=== PATIENT | female | born 1995 | race Caucasian/White ===

== ENCOUNTER 2016-12-27 11:06 | Emergency (ER) | payer OTHER ==
[2016-12-27 12:15] LABS: Basophils % (Auto) 0.5 % (0.0-1.8); Eosinophils % (Auto) 1.6 % (0.0-4.3); Hematocrit 39.1 % (30.3-42.9); Mean Corpuscular HGB Conc 31 % (30-34); Red Blood Count 6.36 M/mm3 (3.65-5.03); White Blood Count 16.7 K/mm3 (4.5-11.0)
[2016-12-27 12:24] LABS: Mean Corpuscular Hemoglobin 19 pg (28-32); Mean Corpuscular Volume 62 fl (79-97)
[2016-12-27 12:28] LABS: Anion Gap 19 mmol/L; Blood Urea Nitrogen 9 mg/dL (7-17); Calcium 8.9 mg/dL (8.4-10.2); Carbon Dioxide 20 mmol/L (22-30); Chloride 102.2 mmol/L (98-107); Glucose 88 mg/dL (65-100); Sodium 137 mmol/L (137-145)
[2016-12-27 12:54] LABS: Platelet Count 223 K/mm3 (140-440)
[2016-12-27 13:17] LABS: Bilirubin,Urine NEG (Negative); Blood,Urine SM (Negative); Ketones,Urine NEG (Negative); Leukocyte Esterase,Urine NEG (Negative); Mucus,Urine 3+ /HPF; Nitrite,Urine NEG (Negative); Protein,Urine <15 mg/dL mg/dL (Negative); Urobilinogen,Urine < 2.0 mg/dL (<2.0)
[2016-12-27] MEDS ORDERED: NACL 0.9% 1000 ML 1,000 ML IV ONE (17:36)
--- NOTE | 2016-12-27 17:36 | Emergency Department Report ---
ED Dizziness HPI - General Chief Complaint: Dizziness Stated Complaint: DIZZINESS/FAINT/VOMITING/ Time Seen by Provider: 12/27/16 16:52 Source: patient, family Mode of arrival: Ambulatory Limitations: No Limitations - History of Present Illness MD Complaint: dizziness, lightheadedness Onset/Timin -: days(s) - Related Data Previous Rx's Medication Instructions Recorded Last Taken Type Doxycycline [Vibramycin CAP] 100 mg PO Q12HR #28 capsule 06/16/16 Unknown Rx HYDROcodone/APAP 5-325 [[place] 1 - 2 each PO Q6HR PRN #20 tablet 06/16/16 Unknown Rx 5/325] Ibuprofen [Motrin 800 MG tab] 800 mg PO Q8HR PRN #20 tablet 06/16/16 Unknown Rx Allergies Allergy/AdvReac Type Severity Reaction Status Date / Time No Known Allergies Allergy Verified 02/22/15 21:09 ED Review of Systems ROS: Stated complaint: DIZZINESS/FAINT/VOMITING/ Other details as noted in HPI ED Past Medical Hx - Past Medical History Previous Medical History?: No Hx Hypertension: No Hx Heart Attack/AMI: No Hx Congestive Heart Failure: No Hx Diabetes: No Hx Deep Vein Thrombosis: No Hx Renal Disease: No Hx Sickle Cell Disease: No Hx Seizures: No Hx Asthma: No Hx COPD: No Hx HIV: No - Social History Smoking Status: Current Every Day Smoker (1/3 pack per day) Substance Use Type: None (denies illicit drug use) - Medications Home Medications: Home Medications Medication Instructions Recorded Confirmed Last Taken Type Doxycycline [Vibramycin CAP] 100 mg PO Q12HR #28 capsule 06/16/16 Unknown Rx HYDROcodone/APAP 5-325 [[place] 1 - 2 each PO Q6HR PRN #20 tablet 06/16/16 Unknown Rx 5/325] Ibuprofen [Motrin 800 MG tab] 800 mg PO Q8HR PRN #20 tablet 06/16/16 Unknown Rx ED Physical Exam - General Limitations: No Limitations ED Course Vital Signs 12/27/16 11:42 Temperature 98.1 F Pulse Rate 77 Respiratory 18 Rate Blood Pressure 119/67 O2 Sat by Pulse 100 Oximetry ED Medical Decision Making - Lab Data Result diagrams: 12/27/16 12:08 12/27/16 12:08 Critical care attestation.: If time is entered above; I have spent that time in minutes in the direct care of this critically ill patient, excluding procedure time. ED Disposition Condition: Stable Referrals: PRIMARY CARE,MD [Primary Care Provider] - 3-5 Days
[2016-12-27] MEDS ORDERED: REGLAN IV ONE (17:37)
[2016-12-27 18:14] LABS: Hematocrit 38.5 % (30.3-42.9); Mean Corpuscular HGB Conc 31 % (30-34); Red Blood Count 6.25 M/mm3 (3.65-5.03); Red Cell Distribution Width 16.1 % (13.2-15.2); White Blood Count 17.1 K/mm3 (4.5-11.0)
[2016-12-27 18:29] LABS: Mean Corpuscular Hemoglobin 19 pg (28-32); Mean Corpuscular Volume 62 fl (79-97); Platelet Count 263 K/mm3 (140-440)
[2016-12-27 19:10] LABS: Basophils % (Manual) 0 % (0.0-1.8); Blastocytes % (Manual) 0 %
[2016-12-27 19:11] LABS: Elliptocytes Few; Hypochromasia 2+; Microcytosis 2+; Ovalocytes 1+
[2016-12-27 19:12] LABS: Diff Status Complete; Large Platelets 1+; Platelet Estimate Consistent w Auto; Target Cells Rare; Tear Drop Cells Few
--- NOTE | 2016-12-27 19:44 | Emergency Department Report ---
ED N/V/D HPI - General Chief complaint: Dizziness Stated complaint: DIZZINESS/FAINT/VOMITING/ Time Seen by Provider: 12/27/16 16:52 Source: patient, family Mode of arrival: Ambulatory Limitations: No Limitations - History of Present Illness Initial comments: Patient is a 21-year-old who presents to ED complaining of nausea and vomiting as 3 days. Patient states she has not been able to hold food or fluids down. Patient describes last menstrual period as 11/15/2016. Patient states she started to experience some dizziness today that lasted a couple minutes. Patient states she felt like the room spinning around her and denies tinnitus or loss of consciousness. Patient states she currently takes no medication and has no allergies. Patient denies fevers/chills/nausea/vomiting/vaginal bleeding /vaginal discharge/abdominal pain/diarrhea or constipation. MD complaint: nausea, vomiting - Related Data Previous Rx's Medication Instructions Recorded Last Taken Type Doxylamine/Pyridoxine HCl 2 each PO QHS #50 tablet.dr 12/27/16 Unknown Rx [Jesse Escoto 10-10 mg Tablet] Exz909/FA/Omega3/Dha/Fish Oil 1 each PO DAILY #60 tab.chew 12/27/16 Unknown Rx [ Gummies] Allergies Allergy/AdvReac Type Severity Reaction Status Date / Time No Known Allergies Allergy Verified 02/22/15 21:09 ED Review of Systems ROS: Stated complaint: DIZZINESS/FAINT/VOMITING/ Other details as noted in HPI Constitutional: denies: chills, fever Eyes: denies: eye pain, eye discharge, vision change ENT: denies: ear pain, throat pain Respiratory: denies: cough, shortness of breath, wheezing Cardiovascular: denies: chest pain, palpitations Endocrine: no symptoms reported Gastrointestinal: denies: abdominal pain, nausea, diarrhea Genitourinary: denies: urgency, dysuria, discharge Musculoskeletal: denies: back pain, joint swelling, arthralgia Skin: denies: rash, lesions Neurological: denies: headache, weakness, paresthesias Psychiatric: denies: anxiety, depression Hematological/Lymphatic: denies: easy bleeding, easy bruising ED Past Medical Hx - Past Medical History Previous Medical History?: No Hx Hypertension: No Hx Heart Attack/AMI: No Hx Congestive Heart Failure: No Hx Diabetes: No Hx Deep Vein Thrombosis: No Hx Renal Disease: No Hx Sickle Cell Disease: No Hx Seizures: No Hx Asthma: No Hx COPD: No Hx HIV: No - Social History Smoking Status: Current Every Day Smoker (1/3 pack per day) Substance Use Type: None (denies illicit drug use) - Medications Home Medications: Home Medications Medication Instructions Recorded Confirmed Last Taken Type Doxylamine/Pyridoxine HCl 2 each PO QHS #50 tablet.dr 12/27/16 Unknown Rx [Diclegis Dr 10-10 mg Tablet] Klh680/FA/Omega3/Dha/Fish Oil 1 each PO DAILY #60 tab.chew 12/27/16 Unknown Rx [ Gummies] ED Physical Exam - General Limitations: No Limitations General appearance: alert, in no apparent distress - Head Head exam: Present: atraumatic, normocephalic - Eye Eye exam: Present: normal appearance, PERRL, EOMI Pupils: Present: normal accommodation - ENT ENT exam: Present: mucous membranes moist - Neck Neck exam: Present: normal inspection, full ROM. Absent: tenderness, meningismus, lymphadenopathy - Respiratory Respiratory exam: Present: normal lung sounds bilaterally. Absent: respiratory distress, wheezes, rales, rhonchi - Cardiovascular Cardiovascular Exam: Present: regular rate, normal rhythm. Absent: systolic murmur, diastolic murmur, rubs, gallop - GI/Abdominal GI/Abdominal exam: Present: soft, normal bowel sounds. Absent: distended, tenderness, guarding, rebound, rigid, mass - Extremities Exam Extremities exam: Present: normal inspection, full ROM, normal capillary refill - Back Exam Back exam: Present: normal inspection, full ROM. Absent: tenderness, CVA tenderness (R), CVA tenderness (L) - Neurological Exam Neurological exam: Present: alert, oriented X3, CN II-XII intact, normal gait - Psychiatric Psychiatric exam: Present: normal affect, normal mood - Skin Skin exam: Present: warm, dry, intact, normal color. Absent: rash, cyanosis, pallor ED Course Vital Signs 12/27/16 12/27/16 11:42 21:30 Temperature 98.1 F 98.3 F Pulse Rate 77 90 Respiratory 18 18 Rate Blood Pressure 119/67 Blood Pressure 105/59 [Right] O2 Sat by Pulse 100 99 Oximetry ED Medical Decision Making - Lab Data Result diagrams: 12/27/16 17:57 12/27/16 12:08 - Medical Decision Making 21-year-old female presents with nausea and vomiting in first trimester . ED course: Patient received 1 L of normal saline and 10 mg of Reglan. CBC shows mild leukocytosis otherwise normal. ultrasound shows normal intrauterine at 6 weeks and 5 days. Gestational sac seen within the uterus= Normal ultrasound. Urinalysis shows no infection no nitrite or bacteria. Fluid challenge and food challenge passed. Patient was able to eat a meal and apple juice juice without vomiting. Patient states she feels much better. She states she has an appointment with her [employer]OM[employer] OPERATOR on January 14 and will keep the appointment. Discussed with the patient to take medication as prescribed. Discussed with patient that diclegis make you drowsy so to take at night time. Discussed with patient to make sure she is eating appropriately meals per day. Throughout the day. Discussed increased hydration with 8- 10 glasses a day. Patient states she understands and will comply to follow-up. Discussed the patient if symptoms worsen to return to ED. Critical care attestation.: If time is entered above; I have spent that time in minutes in the direct care of this critically ill patient, excluding procedure time. 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 Take your medication as prescribed. Increase hydration to 8-10 glasses of water per day. Increase diet to a small meals or 5 times a day. Try ruben products to help with nausea. Prescriptions: Doxylamine/Pyridoxine HCl [Jesse Escoto 10-10 mg Tablet] 2 each PO QHS #50 tablet. Hcq349/FA/Omega3/Dha/Fish Oil [ Gummies] 1 each PO DAILY #60 tab.chew Referrals: PRIMARY CARE, [Primary Care Provider] - 3-5 Days Forms: Accompanied Note, Work/School Release Form(ED) Time of Disposition: 20:58
--- NOTE | 2016-12-27 20:01 | Ultrasound Report ---
FINAL REPORT EXAM: US OB \T\lt; = 14 WEEKS FETUS HISTORY: TECHNIQUE: Ultrasound obstetrical transvaginal an transabdominal PRIORS: Correlation made to prior CT abdomen and pelvis of June 16, 2016 FINDINGS: There is gestational sac within the uterus pole is identified with crown-rump length of 7.9 millimeters with estimated gestational age of 6 weeks 5 days. Estimated date of delivery is August 17, 2017 A yolk sac is identified Right ovary is enlarged measuring 8.4 x 5.8 x 7.0 centimeters. There is a large rounded echogenic structure within the right ovary consistent with an ovarian dermoid. This has been demonstrated on prior CT. Left ovary is 4.4 x 3.0 x 2.8 centimeters. There is a complex appearing 3 centimeter right ovarian cyst probable corpus luteum No free fluid identified IMPRESSION: Single live intrauterine gestation estimated at six weeks 5 days Right ovarian dermoid noted. This has been seen on prior CT
--- NOTE | 2016-12-27 20:03 | Ultrasound Report ---
FINAL REPORT EXAM: US OB TRANSVAGINAL HISTORY: TECHNIQUE: Transabdominal and transvaginal obstetrical ultrasound PRIORS: Correlated with today's transabdominal ultrasound FINDINGS: Single live intrauterine gestation identified corresponding to estimated gestational age 6 weeks 5 days. A large right ovarian dermoid is noted which has been seen on prior CT Please refer to report of transabdominal ultrasound same date for additional findings IMPRESSION: Single live intrauterine gestation estimated at 6 weeks 5 days
[2016-12-27 21:31] VITALS: BP 105/59
== END 2016-12-27 21:30 | disposition home or self-care (01) ==
LOC: ED 11:06
DX: O21.0 Mild hyperemesis gravidarum (principal); O26.891 Other specified pregnancy related conditions, first trimester; R42 Dizziness and giddiness; F17.200 Nicotine dependence, unspecified, uncomplicated; Z3A.01 Less than 8 weeks gestation of pregnancy
CPT/HCPCS: 36415; 76801; 76817; 80048; 81001; 82010; 82962; 83735; 84702; 85007; 85025; 96361; 96374; 99284; J2765; J7030

== ENCOUNTER 2017-08-08 11:31 | Outpatient (CLI) | payer MEDICAID ==
[2017-08-08 12:52] VITALS: BP 100/55
== END 2017-08-08 13:01 | disposition home or self-care (01) ==
LOC: TRG 11:31
PROVIDERS: ATTEND Obstetrics & Gynecology
DX: O99.333 Smoking (tobacco) complicating pregnancy, third trimester (principal); O47.1 False labor at or after 37 completed weeks of gestation; Z3A.38 38 weeks gestation of pregnancy

== ENCOUNTER 2017-08-10 07:12 | Inpatient (IN) | payer MEDICAID ==
[2017-08-10] MEDS ORDERED: STADOL IV PRN (10:09)
[2017-08-10] MEDS ORDERED: LACTATED RINGERS 1,000 ML IV ONE (10:13)
[2017-08-10] MEDS ORDERED: POLYCILLIN/NS 2 GM/100 ML 2 GM/100 ML BAG IV ONE ×2 (10:27→10:30)
[2017-08-10] MEDS ORDERED: LACTATED RINGERS 1,000 ML IV SCH (11:00)
[2017-08-10 11:29] LABS: Basophils % (Auto) 0.4 % (0.0-1.8); Eosinophils % (Auto) 1.5 % (0.0-4.3); Hematocrit 33.8 % (30.3-42.9); Hemoglobin 10.7 gm/dl (10.1-14.3); Mean Corpuscular HGB Conc 32 % (30-34); Red Blood Count 5.35 M/mm3 (3.65-5.03); Red Cell Distribution Width 17.3 % (13.2-15.2); White Blood Count 17.6 K/mm3 (4.5-11.0)
[2017-08-10 12:14] LABS: Mean Corpuscular Hemoglobin 20 pg (28-32); Mean Corpuscular Volume 63 fl (79-97); Platelet Count 234 K/mm3 (140-440)
[2017-08-10] MEDS ORDERED: ePHEDrine SULFATE ONE (12:34)
[2017-08-10] MEDS ORDERED: fentaNYL-BUPIV 2 MCG/ML-0.125% 200 MCG/100 ML BAG EPIDURAL ONE (12:49)
[2017-08-10] MEDS ORDERED: BENADRYL IV PRN (12:57)
[2017-08-10] MEDS ORDERED: NARCAN 2 MG/2 ML IV PRN (12:57)
[2017-08-10] MEDS ORDERED: ePHEDrine SULFATE IV PRN (12:57)
--- NOTE | 2017-08-10 12:57 | Anesthesia Consultation ---
Anesthesia Consult and Med Hx Date of service: 08/10/17 - Airway Anesthetic Teeth Evaluation: Good ROM Head & Neck: Adequate Mental/Hyoid Distance: Adequate Intubation Access Assessment: Probably Good - Pre-Operative Health Status ASA Pre-Surgery Classification: ASA2, Emergency Proposed Anesthetic Plan: Epidural, Spinal - Pulmonary Hx Asthma: No COPD: No Hx Pneumonia: No - Cardiovascular System Hx Hypertension: No Hx Coronary Artery Disease: No Hx Heart Attack/AMI: No Hx Angina: No - Central Nervous System Hx Seizures: No Hx Psychiatric Problems: No - Endocrine Hx Renal Disease: No Hx End Stage Renal Disease: No Hx Hypothyroidism: No Hx Hyperthyroidism: No - Hematic Hx Anemia: No Hx Sickle Cell Disease: No - Other Systems Hx Alcohol Use: No
[2017-08-10] MEDS ORDERED: fentaNYL-BUPIV 2 MCG/ML-0.125% 200 MCG/100 ML BAG EPIDURAL SCH (13:00)
[2017-08-10] MEDS ORDERED: PITOCin/NS 20 UNIT/1000ML DRIP 20,000 MILLIUNITS/1,000 ML BAG IV ONE (14:03)
[2017-08-10] MEDS ORDERED: POLYCILLIN/NS 1 GM/50 ML 1 GM/50 ML BAG IV SCH (14:45)
--- NOTE | 2017-08-10 15:58 | History and Physical Report ---
History of Present Illness Date of examination: 08/10/17 Date of admission: 08/10/17 07:13 Chief complaint: contractions History of present illness: 22y/o @ 39+0 weeks presents with regular uterine contractions. She denies leakage of fluid. Patient initiated care @ 9 weeks. 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 +GBS. Past History Past Medical History: other (dermoid cyst) Past Surgical History: no surgical history Social history: single - Obstetrical History Expected Date of Delivery: 08/17/17 Actual Gestation: 39 Week(s) 0 Day(s) : 2 Para: 1 Hx # Term Pregnancies: 1 Number of Pregnancies: 0 Spontaneous Abortions: 0 Induced : 0 Number of Living Children: 1 Medications and Allergies Allergies Allergy/AdvReac Type Severity Reaction Status Date / Time No Known Allergies Allergy Verified 02/22/15 21:09 Home Medications Medication Instructions Recorded Confirmed Last Taken Type Doxylamine/Pyridoxine HCl 2 each PO QHS #50 tablet.dr 12/27/16 08/08/17 Unknown Rx [Jesse Escoto 10-10 mg Tablet] Ffh347/FA/Omega3/Dha/Fish Oil 1 each PO DAILY #60 tab.chew 12/27/16 08/08/17 Unknown Rx [ Gummies] Active Meds: Active Medications Butorphanol Tartrate (Stadol) 2 mg IV Q2H PRN PRN Reason: Labor Pain Diphenhydramine HCl (Benadryl) 12.5 mg IV Q2H PRN PRN Reason: Itching Lactated Ringer's (Lactated Ringers) 1,000 mls @ 125 mls/hr IV DIRECT DYLLAN Last Admin: 08/10/17 11:30 Dose: 125 mls/hr Fentanyl/Bupivacaine/Sodium Chlor (Fentanyl-Bupiv 2 Mcg/Ml-0.125%) 200 mcg in 100 mls @ 12 mls/hr EPIDURAL TITR DYLLAN PRN Reason: Protocol Ampicillin Sodium (Polycillin/Ns 1 Gm/50 Ml) 1 gm in 50 mls @ 100 mls/hr IV Q4H DYLLAN PRN Reason: Protocol Last Admin: 08/10/17 14:34 Dose: 100 mls/hr Oxytocin/Sodium Chloride (Pitocin/Ns 30 Unit/500ml) 30 units in 500 mls @ 1 mls /hr IV TITR DYLLAN; 1 MILLIUNITS/MIN PRN Reason: Protocol Last Admin: 08/10/17 15:33 Dose: 4 milliunits/min, 4 mls/hr Review of Systems All systems: negative Genitourinary: pelvic pain, contractions - Vital Signs Vital signs: Vital Signs Temp Resp 97.6 F 18 08/10/17 07:25 08/10/17 07:25 Temp Pulse Resp BP Pulse Ox 97.6 F 79 18 114/58 99 08/10/17 07:25 08/10/17 15:44 08/10/17 07:25 08/10/17 15:32 08/10/17 15:44 - Physical Exam Breasts: Positive: deferred Cardiovascular: Regular rate Lungs: Positive: Clear to auscultation Abdomen: Positive: normal appearance, soft Results Result Diagrams: 08/10/17 10:15 Abnormal lab results 08/10/17 Range/Units 10:15 WBC 17.6 H (4.5-11.0) K/mm3 RBC 5.35 H (3.65-5.03) M/mm3 MCV 63 L (79-97) fl MCH 20 L (28-32) pg RDW 17.3 H (13.2-15.2) % Lymph % (Auto) 10.6 L (13.4-35.0) % [place] # 0.9 H (0.0-0.8) K/mm3 Seg Neutrophils % 82.2 H (40.0-70.0) % Seg Neutrophils # 14.5 H (1.8-7.7) K/mm3 All other labs normal. Assessment and Plan - Patient Problems (1) Active labor at term Current Visit: Yes Status: Acute Plan to address problem: admit to L&D start IV antibiotics
[2017-08-10] MEDS ORDERED: PITOCin/NS 30 UNIT/500ML 30 UNITS/500 ML BAG IV SCH (16:00)
--- NOTE | 2017-08-10 16:05 | Procedure Note ---
OB Delivery Note - Delivery Date of Delivery: 08/10/17 Surgeon: SILVIA NOLAN Estimated blood loss: other (150ml) - Vaginal Delivery presentation: vertex Delivery position: OA Intrapartum events: other(please specify) (light stained meconium fluid) Delivery augmentation: rupture of membranes, pitocin Delivery monitor: external FHT Route of delivery: Delivery placenta: spontaneous Delivery cord: nuchal cord, 3 umbilical vessels Episiotomy: none Delivery laceration: none Anesthesia: epidural Delivery comments: Patient progressed to C/C/+1 and pushed to deliver a liveborn female with apgars of 8/9 and weight of 6lbs 9oz. After delivery of the head the shoulders delivered easily. A nuchal cord x1 was manually reduced. The infant was bulb suctioned. The cord was clamped and cut and infant placed on the mother 's abdomen. The placenta delivered spontaneously intact with a 3VC. No lacerations were noted.EBL 150ml - Infant A at 1 minute: 8 at 5 minutes: 9 Gender: Female (weight 6lbs 9oz)
[2017-08-10] MEDS ORDERED: MILK OF MAGNESIA PO PRN (16:44)
[2017-08-10] MEDS ORDERED: TUCKS PAD TP PRN (16:44)
[2017-08-10] MEDS ORDERED: ZOFRAN IV PRN (16:44)
[2017-08-10] MEDS ORDERED: LANSINOH TP PRN (16:44)
[2017-08-10] MEDS ORDERED: DULCOLAX PR PRN (16:44)
[2017-08-10] MEDS ORDERED: PHENERGAN PR PRN (16:44)
[2017-08-10] MEDS ORDERED: BENADRYL PO PRN (16:44)
[2017-08-10] MEDS ORDERED: TYLENOL PO PRN (16:44)
[2017-08-10] MEDS ORDERED: PHENERGAN PO PRN (16:44)
[2017-08-10] MEDS ORDERED: SODIUM CHLORIDE FLUSH SYRINGE 10 ML IV NR (17:00)
[2017-08-10] MEDS: MOTRIN PO SCH (20:09)
[2017-08-11] MEDS: MOTRIN PO SCH ×5 (06:03→23:50)
[2017-08-11] MEDS: FIORICET PO PRN ×2 (10:30→20:46)
[2017-08-11 10:47] LABS: Hematocrit 30.8 % (30.3-42.9); Hemoglobin 9.8 gm/dl (10.1-14.3)
--- NOTE | 2017-08-11 11:21 | Progress Note ---
Assessment and Plan - Patient Problems (1) Active labor at term Current Visit: Yes Status: Acute Plan to address problem: Patient doing well Discharge home tomorrow Subjective - Subjective Date of service: 08/11/17 Interval history: Patient without any significant complaints. She is tolerating regular diet without complication. Her pain is controlled. Patient reports: appetite normal, voiding normally, pain well controlled [place]: doing well Objective - Vital Signs Latest vital signs: Vital Signs Temp Pulse Resp BP BP Pulse Ox 08/11/17 08:10 98.5 F 80 18 105/56 95 08/11/17 04:00 98.6 F 66 18 121/77 08/11/17 00:00 98.6 F 71 16 08/10/17 20:00 98.6 F 73 16 114/69 08/10/17 18:14 90 125/65 08/10/17 17:59 92 H 122/68 08/10/17 17:44 85 120/69 08/10/17 17:29 93 H 126/70 08/10/17 17:14 92 H 117/64 08/10/17 17:00 99 H 126/75 08/10/17 16:45 88 121/62 08/10/17 16:20 98 H 96 08/10/17 16:15 98 H 98 08/10/17 16:10 81 96 08/10/17 16:05 79 98 08/10/17 16:03 80 110/55 08/10/17 16:00 85 97 08/10/17 15:55 91 H 97 08/10/17 15:50 86 96 08/10/17 15:44 79 99 08/10/17 15:40 84 99 08/10/17 15:34 76 98 08/10/17 15:32 81 114/58 08/10/17 15:30 81 98 08/10/17 15:25 78 99 08/10/17 15:20 86 100 08/10/17 15:15 81 98 08/10/17 15:10 85 98 08/10/17 15:05 77 99 08/10/17 15:04 82 120/56 08/10/17 15:00 83 99 08/10/17 14:55 82 98 08/10/17 14:50 91 H 98 08/10/17 14:45 92 H 98 08/10/17 14:40 90 98 08/10/17 14:35 87 97 08/10/17 14:33 84 111/57 08/10/17 14:29 83 99 08/10/17 14:25 90 99 08/10/17 14:20 89 98 08/10/17 14:15 84 98 08/10/17 14:10 90 99 08/10/17 14:05 90 99 08/10/17 14:03 88 120/64 08/10/17 14:00 88 100 08/10/17 13:55 86 100 08/10/17 13:50 78 98 08/10/17 13:45 95 H 98 08/10/17 13:40 83 97 08/10/17 13:35 90 98 08/10/17 13:32 91 H 110/62 08/10/17 13:30 94 H 96 08/10/17 13:25 87 96 08/10/17 13:20 85 96 08/10/17 13:15 82 97 08/10/17 13:10 90 97 08/10/17 13:05 90 98 08/10/17 13:01 85 111/59 08/10/17 13:00 91 H 97 08/10/17 12:59 82 110/58 08/10/17 12:57 75 112/56 08/10/17 12:55 82 109/57 97 08/10/17 12:53 77 111/56 08/10/17 12:51 82 114/56 08/10/17 12:50 82 98 08/10/17 12:49 85 118/57 08/10/17 12:47 82 116/57 08/10/17 12:45 90 122/64 97 08/10/17 12:43 86 115/60 08/10/17 12:39 90 96 08/10/17 12:35 96 H 98 08/10/17 12:33 93 H 91 08/10/17 12:30 89 99 08/10/17 12:27 99 H 94 08/10/17 12:25 93 H 98 Intake and Output 08/10/17 08/11/17 08/11/17 22:59 06:59 14:59 Intake Total 550 240 Output Total 1600 1400 Balance -1600 -850 240 Intake: Oral 250 240 Intake, Free Water 300 Output: Urine 1600 1400 Indwelling Catheter 1000 Void 600 1400 Other: Total, Intake Amount 250 240 Total, Output Amount 600 800 # Voids Void 1 1 Estimated Blood Loss 150 - Exam Uterus: Present: normal, firm - Labs Labs: Abnormal lab results 08/10/17 08/11/17 Range/Units 10:15 10:14 WBC 17.6 H (4.5-11.0) K/mm3 RBC 5.35 H (3.65-5.03) M/mm3 Hgb 9.8 L (10.1-14.3) gm/dl MCV 63 L (79-97) fl MCH 20 L (28-32) pg RDW 17.3 H (13.2-15.2) % Lymph % (Auto) 10.6 L (13.4-35.0) % [place] # 0.9 H (0.0-0.8) K/mm3 Seg Neutrophils % 82.2 H (40.0-70.0) % Seg Neutrophils # 14.5 H (1.8-7.7) K/mm3
--- NOTE | 2017-08-11 11:22 | Discharge Summary ---
Providers - Providers Date of Admission: 08/10/17 07:13 Date of discharge: 08/12/17 Attending physician: SILVIA NOLAN Primary care physician: SILVIA NOLAN Hospitalization Reason for admission: active labor Delivery: Episiotomy: none Discharge diagnosis: IUP at term delivered [place] baby: female Pertinent studies: Patient admitted in active labor. The patient had successful vaginal delivery. course uncomplicated Condition at discharge: Good Disposition: DC-01 TO HOME OR SELFCARE - Discharge Diagnoses (1) Active labor at term Status: Acute Plan - Discharge Medications Prescriptions: HYDROcodone/APAP 5-325 [[place] 5/325] 1 each PO Q6HR PRN #30 tablet PRN Reason: Pain Ibuprofen [Motrin] 800 mg PO Q8HR PRN #60 tablet PRN Reason: Pain - Provider Discharge Summary Activity: no sex for 6 weeks, no heavy lifting 4 weeks, no strenuous exercise Diet: routine Instructions: routine Additional instructions: [] Smoking cessation referral if applicable(refer to patient education folder for contact #) [] Refer to [facility] Booklet Call your doctor immediately for: * Fever > 100.5 * Heavy vaginal bleeding ( >1 pad per hour) * Severe persistent headache * Shortness of breath * Reddened, hot, painful area to leg or breast * Follow-up 4 weeks - Follow up plan
[2017-08-12] MEDS: MOTRIN PO SCH ×2 (05:01→12:15)
[2017-08-12] MEDS: FIORICET PO PRN (10:20)
[2017-08-12 17:11] VITALS: BP 104/57
== END 2017-08-12 17:50 | disposition home or self-care (01) | DRG 775 ==
LOC: TRG 07:12 → LD 07:13 → OB 19:28
PROVIDERS: ADMIT Obstetrics & Gynecology; ATTEND Obstetrics & Gynecology
PROC: 10E0XZZ Delivery of Products of Conception, External Approach (ICD-10-PCS; principal; 2017-08-10)
PROC: 3E0S3CZ (ICD-10-PCS; 2017-08-10)
PROC: 00HU33Z Insertion of Infusion Device into Spinal Canal, Percutaneous Approach (ICD-10-PCS; 2017-08-10)
DX: O77.0 Labor and delivery complicated by meconium in amniotic fluid (principal); O69.81X0 Labor and delivery complicated by cord around neck, without compression, not applicable or unspecified; O99.824 Streptococcus B carrier state complicating childbirth; O75.89 Other specified complications of labor and delivery; D36.9 Benign neoplasm, unspecified site; Z3A.39 39 weeks gestation of pregnancy; Z37.0 Single live birth
CPT/HCPCS: 36415; 85014; 85018; 85025; 86850; 86900; 86901; 99211; A6250; G0463; J0290; J2590; J7120

== ENCOUNTER 2022-04-02 18:40 | Emergency (ER) | payer OTHER ==
[2022-04-02 20:07] VITALS: BP 105/72
== END 2022-04-03 08:02 | disposition left against medical advice (07) ==
LOC: ED 18:40
DX: O20.8 Other hemorrhage in early pregnancy (principal); Z53.21 Procedure and treatment not carried out due to patient leaving prior to being seen by health care provider; Z3A.00 Weeks of gestation of pregnancy not specified